=== PATIENT | female | born 2000 | race Two or more races ===

== ENCOUNTER 2025-05-09 16:20 | Emergency (ER) | payer MEDICAID, SELFPAY ==
--- NOTE | 2025-05-09 17:05 | XR_ITS ---
Examination: Complete OB ultrasound greater than 14 weeks Date and time of exam: May 09, 2025, 1733 hours INDICATIONS: No movement beginning 2 days ago Findings: Viable intrauterine single fetus with single amniotic sac presentation breech Cardiac motion 169 BPM Placenta posterior grade 1 Umbilical cord insertion seen Amniotic fluid index 10.7 cm spine posterior Cervix 2.4 cm Right ovary obscured by bowel gas Left ovary 2.7 cm arterial flow Composite estimated gestational age based on BPD, head circumference, abdominal circumference, femur length is 19 weeks 2 days Estimated weight 305 g. Survey of intracranial anatomy, spinal anatomy, abdominal anatomy, four-chamber heart performed with no abnormalities identified. Impression: Viable intrauterine gestation breech presentation
--- NOTE | 2025-05-09 17:06 | PD.EDRME ---
Rapid Medical Screening Exam RME Arrival date/time: 05/09/25 16:20 24-year-old female with no known medical history presents to the emergency room with a chief complaint of not being able to feel her baby move x 2 days. Patient is currently 19 weeks . I have greeted and performed a focused initial assessment of this patient. A comprehensive ED assessment and evaluation of the patient, analysis of all test results, and completion of the medical decision making process will be conducted by additional ED providers. Chief Complaint: OB/Uterine Contractions Time Seen by Provider: 05/09/25 16:39 Vital signs reviewed by provider: Yes
[2025-05-09 17:07] VITALS: BP 112/68; PULSE 97; RESP 16; TEMP 37.3; O2SAT 98
[2025-05-09 17:22] LABS: Collection Type, Urine Clean Catch; RBC,Urine 0 /hpf (0-3)
[2025-05-09 17:28] LABS: Basophils # (Auto) 0.1 Thou/mm3 (0.0-0.2); Basophils % (Auto) 0 % (0-2.5); Eosinophils # (Auto) 0.1 Thou/mm3 (0.0-0.5); Eosinophils % (Auto) 1 % (0-10); Hematocrit 34.6 % (36.0-46.0); Hemoglobin 12.2 g/dL (12.0-16.0); Immature Granulocytes Auto 0.18 Thou/mm3 (0.00-0.00); Lymphocytes # (Auto) 1.7 Thou/mm3 (1.0-4.8); Lymphocytes % (Auto) 13 % (10-50); Mean Corpuscular HGB Conc 35.3 g/dl (31.0-37.0); Mean Corpuscular Hemoglobin 31.9 pg (25.0-35.0); Mean Corpuscular Volume 90 fL (80-100); Monocytes # (Auto) 1.0 Thou/mm3 (0.0-0.8); Monocytes % (Auto) 8 % (0-12); Neutrophils # (Auto) 10.6 Thou/mm3 (1.8-7.7); Neutrophils % (Auto) 78 % (37-80); Nucleated Red Blood Cell # 0.00 Thou/mm3 (0.00-0.00); Nucleated Red Blood Cell % 0 /100 WBC (0); Platelet Count 213 Thou/mm3 (140-440); RDW Standard Deviation 41.8 fL (36.4-46.3); Red Blood Count 3.83 Miln/mm3 (4.00-5.20); White Blood Count 13.7 Thou/mm3 (3.6-11.0)
[2025-05-09 17:58] LABS: Bacteria,Urine 1+; Bilirubin,Urine Negative (Negative); Blood,Urine Negative (Negative); Clarity,Urine Clear (Clear/Hazy); Color,Urine Colorless (Lt Yel-Yel); Glucose, Urine Negative (Negative); Ketones,Urine Negative (Negative); Leukocyte Esterase,Urine Negative (Negative); Nitrite,Urine Negative (Negative); PH,Urine 7.0 (5.0-7.0); Protein,Urine Negative (Neg - Trace); Specific Gravity,Urine 1.006 (1.001-1.035); Squamous Epithelial Cell,Urine 2 /hpf (0-5); Urobilinogen,Urine Negative mg/dL (0.0-1.0); WBC,Urine 1 /hpf (0-5)
[2025-05-09 18:04] LABS: Alanine Aminotransferase 10 U/L (10-49); Albumin, Serum 4.1 gm/dL (3.5-5.0); Albumin/Globulin Ratio 1.5 (1.2-2.2); Alkaline Phosphatase 72 U/L (46-116); Anion Gap 10 (7-16); Aspartate Amino Transferase 17 U/L (0-34); BUN/Creatinine Ratio 8 Ratio (12-20); Bilirubin,Total 0.3 mg/dL (0.3-1.2); Blood Urea Nitrogen < 5 mg/dL (9-23); Calcium 9.4 mg/dL (8.3-10.6); Calcium (Corrected) 9.4 mg/dL (8.5-10.1); Carbon Dioxide 22.0 mMol/L (20.0-31.0); Chloride 107 mMol/L (98-107); Creatinine (Component) 0.6 mg/dL (0.6-1.3); Estimated Creatinine Clearance 127.9 mL/min (>60); Globulin 2.7 gm/dL (2.3-3.5); Glucose 79 mg/dL (74-106); Osmolality,Calculated 273 (275-295); Potassium 3.8 mMol/L (3.4-5.1); Sodium 139 mMol/L (136-145); Total Protein 6.8 gm/dL (5.7-8.2); eGFR > 60 See Note
[2025-05-09 18:27] LABS: Beta HCG,Quantitative 58564 mIU/mL (<5.0)
[2025-05-09 19:40] VITALS: BP 110/72; PULSE 93; RESP 15; TEMP 37; O2SAT 100
--- NOTE | 2025-05-09 20:22 | PD.EDPREG ---
ED OB Contraction Preg RMI/HPI General Chief complaint: OB/Uterine Contractions Stated complaint: NO MOVEMENT FELT SINCE SAT NIGHT, PREG 19WKS Time Seen by Provider: 05/09/25 16:39 Arrival date/time: 05/09/25 16:20 Limitations: no limitations RME / HPI RME / HPI Narrative: 05/09/25 16:20 24-year-old female with no known medical history presents to the emergency room with a chief complaint of not being able to feel her baby move x 2 days. Patient is currently 19 weeks . Patient denies any abdominal pain, nausea, or vomiting. She has no fevers or chills. She has no back or flank pain. She denies any vaginal discharge or dysuria. Has no urinary frequency. She is A0. She has no chronic medical conditions. She has no other acute complaints or concerns. Related Data Home Medications ?Medication ?Instructions ?Recorded ?Confirmed No Known Home Medications 05/29/21 05/29/21 Allergies Allergy/AdvReac Type Severity Reaction Status Date / Time No Known Allergies Allergy Verified 05/09/25 16:24 Review of Systems Review of Systems Systems Reviewed: All systems reviewed, normal except as documented ED Exam General Limitations: Present no limitations General appearance: Present alert and in no apparent distress Head Head exam: Present atraumatic Eye Eye exam: Present normal appearance, PERRL and EOMI ENT ENT exam: Present normal exam, normal oropharynx and mucous membranes moist Neck Neck exam: Present normal inspection, full ROM and trachea midline Chest Chest inspection: Present normal inspection and symmetric chest wall rise Respiratory Respiratory exam: Present normal lung sounds bilaterally Cardiovascular Cardiovascular exam: Present regular rate, normal rhythm and normal heart sounds Abdominal Exam Abdominal exam: Present soft and normal bowel sounds Extremities Exam Extremities exam: Present normal inspection and full ROM Back Exam Back exam: Present normal inspection and full ROM Neurological Exam Neurological exam: Present alert and oriented X3 Psychiatric Psychiatric exam: Present normal affect and normal mood Skin Skin exam: Present warm, dry, intact and normal color Course Quality Measures none Orders Category Date Time Status US OB >= 14 weeks Fetus Stat Exams 05/09/25 17:05 Completed ABO/RH Type Stat Lab 05/09/25 17:13 Completed Beta HCG,Quantitative Stat Lab 05/09/25 17:13 Completed CBC Stat Lab 05/09/25 17:13 Completed CMP [Comprehensive Metabolic Panel] Stat Lab 05/09/25 17:13 Completed UA [Urinalysis] Stat Lab 05/09/25 17:00 Completed Vital Signs Vital signs: Vital Signs Temperature 99.1 F 05/09/25 17:07 Pulse Rate 97 05/09/25 17:07 Respiratory Rate 16 05/09/25 17:07 Blood Pressure 112/68 05/09/25 17:07 Pulse Oximetry (%) 98 05/09/25 17:07 Oxygen Delivery Method Room Air 05/09/25 17:07 OB/Uterine Contractions MDM Narrative MDM Narrative:: 05/09/25 16:20 24-year-old female with no known medical history presents to the emergency room with a chief complaint of not being able to feel her baby move x 2 days. Patient is currently 19 weeks . Patient denies any abdominal pain, nausea, or vomiting. She has no fevers or chills. She has no back or flank pain. She denies any vaginal discharge or dysuria. Has no urinary frequency. She is A0. She has no chronic medical conditions. She has no other acute complaints or concerns. On exam patient is nontoxic-appearing and in no visible signs distress. Vital signs are stable. She has a mild leukocytosis of 13.7. She has no metabolic derangement. Urinalysis unremarkable. Ultrasound reveals heart rate. There is a live intrauterine . Discussed results with the patient. She will follow-up with her primary doctor and ITALIAN TEACHER. Return as needed for any worsening or emergent changes. Patient data External records reviewed:: None Clinical information provided by:: patient Social determinants that could affect healthcare access:: none Patient has the following chronic illnesses:: n/a How is presenting disease/condition affected by chronic disease/condition?: no chronic disease Evaluation data The following diagnostics were reviewed and interpreted by me:: lab results (CBC reveals mild leukocytosis otherwise unremarkable. There is no metabolic derangement. UA is unremarkable) and radiology exam(s) (Ultrasound reveals IUP with active heart rate.) Lab and/or radiology exams considered but not ordered:: n/a Interpretation Summary: n/a Medications / Prescriptions Medications or Prescriptions considered but not ordered:: n/a Medication administrations:: n/a Consultations Consultation(s) initiated? (list below): No Diagnosis OB Contractions Differential Diagnosis: premature labor and other (Miscarriage, threatened miscarriage) Most likely diagnosis given after review of the tests above:: Active Admission Indicated Admission indicated?: not indicated Explain why admission is indicated or not indicated:: Patient has no vaginal bleeding or discharge. Vital signs are stable. There is no evidence of septic shock Admission Request Was there a request for admission?: No Disposition Plan Disposition Plan: Discharge Discharge Attestation Discharge Attestation: The patient and all family members were given an opportunity to ask questions and understood the discharge instructions. Discharge instructions specifically effects, indications for sooner follow up or return to the emergency department, and the expected course of current diagnosis. Patient condition: Stable Discharge Plan Plan Patient Disposition: HOME (Self Care) Patient condition on transfer: Stable Prescriptions/Referrals Prescriptions/Med Rec: No Action No Known Home Medications Referrals: Victor Manuel Morrison MD [Primary Care Provider] - In 1 week Problem List Clinical Impression: Patient/Caregiver Discharge Instructions Education Materials: Preg 2nd Trimester Additional Instructions: - Maintain your hydration. Continue your current care including vitamins. - Follow-up with your primary doctor and ITALIAN TEACHER. - Return here as needed for any emergent changes or concerns. Print Language: Italian Stand Alone Forms: Gisela Award Info., Patient Portal Info Letter
[2025-05-09 20:32] VITALS: RESP 18
== END 2025-05-09 20:33 | disposition home or self-care (01) ==
PROVIDERS: Nurse Practitioner Family; Emergency Provider Emergency Medicine; PCP Family Medicine
DX: O99.112 Other diseases of the blood and blood-forming organs and certain disorders involving the immune mechanism complicating pregnancy, second trimester (principal); D72.829 Elevated white blood cell count, unspecified; Z3A.19 19 weeks gestation of pregnancy
CPT/HCPCS: 36415; 76805; 80053; 81001; 84702; 85025; 86900; 86901; 99283

== ENCOUNTER 2025-09-02 17:29 | Observation (INO) | payer MEDICAID, SELFPAY ==
[2025-09-02] VITALS (57 sets, daily range): BP systolic 110; BP diastolic 62; PULSE 73–106; RESP 18–98; TEMP 37.1–37.3; O2SAT 91–100; BMI 26.6
--- NOTE | 2025-09-02 18:09 | XR_ITS ---
Examination: Retroperitoneal ultrasound, complete Technique: Multiple high resolution grayscale images of the retroperitoneum obtained, including kidneys and bladder. Exam date and time: September 02, 2025, 2020 hours INDICATIONS: Back pain and flank pain today 35-week FINDINGS: Right kidney 12.6 cm renal cortex 2.7 cm Left kidney 12.2 cm renal cortex 3.0 cm No hydronephrosis or renal edema, no renal calculi Contracted urinary bladder IMPRESSION: No hydronephrosis or renal calculi
[2025-09-02] MEDS: RINGERS LACTATED 1000 ML 1,000 ML 999 ML IV (18:20)
[2025-09-02 18:44] LABS: Collection Type, Urine Clean Catch
[2025-09-02 19:00] LABS: Amorphous Crystals,Urine Present (Absent); Bacteria,Urine 1+; Bilirubin,Urine Negative (Negative); Blood,Urine Negative (Negative); Clarity,Urine Turbid (Clear/Hazy); Color,Urine Yellow (Lt Yel-Yel); Glucose, Urine Negative (Negative); Ketones,Urine 2+ (Negative); Leukocyte Esterase,Urine Positive (Negative); Nitrite,Urine Negative (Negative); PH,Urine 6.5 (5.0-7.0); Protein,Urine Trace (Neg - Trace); RBC,Urine 4 /hpf (0-3); Specific Gravity,Urine 1.024 (1.001-1.035); Squamous Epithelial Cell,Urine 8 /hpf (0-5); Urobilinogen,Urine Negative mg/dL (0.0-1.0); WBC,Urine 5 /hpf (0-5)
[2025-09-02] MEDS: RINGERS LACTATED 1000 ML 1,000 ML 125 ML IV (19:27)
[2025-09-02 19:29] LABS: Basophils # (Auto) 0.0 Thou/mm3 (0.0-0.2); Basophils % (Auto) 0 % (0-2.5); Eosinophils # (Auto) 0.1 Thou/mm3 (0.0-0.5); Eosinophils % (Auto) 1 % (0-10); Hematocrit 32.9 % (36.0-46.0); Hemoglobin 11.0 g/dL (12.0-16.0); Immature Granulocytes Auto 0.09 Thou/mm3 (0.00-0.00); Lymphocytes # (Auto) 1.6 Thou/mm3 (1.0-4.8); Lymphocytes % (Auto) 16 % (10-50); Mean Corpuscular HGB Conc 33.4 g/dl (31.0-37.0); Mean Corpuscular Hemoglobin 29.4 pg (25.0-35.0); Mean Corpuscular Volume 88 fL (80-100); Monocytes # (Auto) 1.0 Thou/mm3 (0.0-0.8); Monocytes % (Auto) 10 % (0-12); Neutrophils # (Auto) 7.1 Thou/mm3 (1.8-7.7); Neutrophils % (Auto) 72 % (37-80); Nucleated Red Blood Cell # 0.00 Thou/mm3 (0.00-0.00); Nucleated Red Blood Cell % 0 /100 WBC (0); Platelet Count 192 Thou/mm3 (140-440); RDW Standard Deviation 43.9 fL (36.4-46.3); Red Blood Count 3.74 Miln/mm3 (4.00-5.20); White Blood Count 9.9 Thou/mm3 (3.6-11.0)
[2025-09-02] MEDS: cefTRIAXone/D5w 1gm IV premix 1 GM/50 ML BAG IV (22:08)
== END 2025-09-02 22:51 | disposition home or self-care (01) ==
PROVIDERS: Admitting Provider Specialist; Visit Provider Specialist
DX: O26.893 Other specified pregnancy related conditions, third trimester (principal); Z3A.35 35 weeks gestation of pregnancy; M54.9 Dorsalgia, unspecified
CPT/HCPCS: 36415; 59025; 59899; 76770; 81001; 85025; 86850; 86900; 86901; 87086; G0378; J0696; J7120

== ENCOUNTER 2025-09-27 18:48 | Inpatient (IN) | payer MEDICAID, SELFPAY ==
--- NOTE | 2025-09-26 07:53 | ESHP_ITS ---
RE: MARQUIS CUMMINS : 2000 DATE OF ADMISSION: 09/27/2025 This is a 24-year-old 1, para 0 with due date of 10/02 with intrauterine at 39 weeks and 2 days on 09/27, who presents for induction of labor for gestational diabetes mellitus class A1 well controlled. Her most recent ultrasound on 09/19 showed overall growth at the 69th percentile with an abdominal circumference at the 95th percentile. She denies any leaking or bleeding. She reports normal movement. She has occasional contractions. PAST MEDICAL HISTORY: Gestational diabetes mellitus class A1, iron deficiency anemia, coronavirus infection. MEDICATIONS: 1. multivitamin 1 p.o. daily. 2. Ferrous sulfate 325 mg 1 p.o. daily. 3. Magnesium oxide 400 mg 1 tablet daily p.r.n. to prevent headaches. SOCIAL HISTORY: She denies any alcohol, drug use, or smoking. PAST MEDICAL HISTORY: Migraine headaches, gestational diabetes mellitus class A1. SOCIAL HISTORY: She denies any alcohol, drug use, or smoking. FAMILY HISTORY: Cousin with Down syndrome. PAST SURGICAL HISTORY: Denies. REVIEW OF SYSTEMS: She denies any chest pain, palpitations, cough, fever, flank pain, shortness of breath, or lower extremity pain. PHYSICAL EXAMINATION: VITAL SIGNS: Blood pressure 115/66, heart rate 88, respirations 18, temperature is 98.7, weight 162 pounds. HEENT: Oropharynx and sclerae are clear. LUNGS: Clear to auscultation bilaterally. HEART: Regular rate and rhythm. ABDOMEN: Gravid consistent with estimated weight 8.5 pounds. PELVIC EXAM: See RN notes. EXTREMITIES: Nontender. SKIN: No gross rashes or lesions. NEUROLOGIC: No focal deficit. ASSESSMENT: Intrauterine at 39 weeks and 2 days on 09/27, gestational diabetes mellitus class A1 well controlled. PLAN: Induction of labor, anticipate spontaneous vaginal delivery. Informed consent was obtained. The patient is made aware of the risk, complications, alternative, and benefits of the proposed procedure and she agrees. DT: 06:14:20 TT: 07:33:00 Ref: [id number] - TID: [id number] MTDD
[2025-09-27] VITALS (12 sets, daily range): BP systolic 100–117; BP diastolic 54–74; PULSE 82–102; RESP 16–17; TEMP 36.4–36.8; BMI 27.3
[2025-09-27] MEDS: RINGERS LACTATED 1000 ML 1,000 ML 100 ML IV (19:06)
[2025-09-27 19:35] LABS: Basophils # (Auto) 0.0 Thou/mm3 (0.0-0.2); Basophils % (Auto) 0 % (0-2.5); Eosinophils # (Auto) 0.0 Thou/mm3 (0.0-0.5); Eosinophils % (Auto) 0 % (0-10); Hematocrit 35.1 % (36.0-46.0); Hemoglobin 11.8 g/dL (12.0-16.0); Immature Granulocytes Auto 0.11 Thou/mm3 (0.00-0.00); Lymphocytes # (Auto) 1.5 Thou/mm3 (1.0-4.8); Lymphocytes % (Auto) 15 % (10-50); Mean Corpuscular HGB Conc 33.6 g/dl (31.0-37.0); Mean Corpuscular Hemoglobin 28.6 pg (25.0-35.0); Mean Corpuscular Volume 85 fL (80-100); Monocytes # (Auto) 0.7 Thou/mm3 (0.0-0.8); Monocytes % (Auto) 7 % (0-12); Neutrophils # (Auto) 7.4 Thou/mm3 (1.8-7.7); Neutrophils % (Auto) 76 % (37-80); Nucleated Red Blood Cell # 0.00 Thou/mm3 (0.00-0.00); Nucleated Red Blood Cell % 0 /100 WBC (0); Platelet Count 211 Thou/mm3 (140-440); RDW Standard Deviation 43.7 fL (36.4-46.3); Red Blood Count 4.12 Miln/mm3 (4.00-5.20); White Blood Count 9.8 Thou/mm3 (3.6-11.0)
--- NOTE | 2025-09-27 19:44 | XR_ITS ---
Examination: Complete OB ultrasound greater than 14 weeks Date and time of exam: September 27, 2025, 2030 hours INDICATIONS: History gestational diabetes, induction to 05/02/2025, unknown presentation Findings: Viable intrauterine single fetus with single amniotic sac presentation cephalic Cardiac motion 158 bpm Placenta posterior grade 3 Medical cord insertion 3 vessel seen Amniotic fluid index 9.6 cm spine maternal left Cervix 3.1 cm Ovaries obscured by bowel gas. Composite estimated gestational age based on BPD, head circumference, abdominal circumference, femur length is 39 weeks 2 days Estimated weight 3755 g. Survey of intracranial anatomy, spinal anatomy, abdominal anatomy, four-chamber heart performed with no abnormalities identified. Impression: Viable intrauterine gestation cephalic presentation.
[2025-09-27 21:29] LABS: Syphilis Nonreactive (Nonreactive)
[2025-09-28] VITALS (38 sets, daily range): BP systolic 93–140; BP diastolic 52–97; PULSE 77–113; RESP 14–25; TEMP 2.6–37.4; O2SAT 97–99
--- NOTE | 2025-09-28 07:33 | PD.LDPN ---
Documentation for date of: 09/28/25 OB Labor Progress Note Pain Control Comments: Denies any pain Pelvic Exam Dilation (cm): 1 Effacement (%): Thick station: -3 Amniotic membrane status: Intact Contractions Monitor mode: External Contraction frequency: 6-8 Contraction pattern: Tetanic Contraction intensity: Moderate Status status: Category l Assessment and Plan Comments: Cervical ripening ongoing Induction for gestational diabetes mellitus class A1 well-controlled at 39 weeks Anticipate spontaneous vaginal delivery History of Present Illness HPI Patient denies any primary complaint
[2025-09-28] MEDS: RINGERS LACTATED 1000 ML 1,000 ML 100 ML IV (09:35)
[2025-09-28] MEDS: FAMOTIDINE INJ 10 MG/ML VIAL 2 ML 20 MG IV (19:14)
[2025-09-28] MEDS: CITRIC ACID/SODIUM CITR 15 ML UDC (BICITRA) 30 ML PO (19:14)
[2025-09-28] MEDS: ceFAZolin/D5W 2 GM IV 2 GM/100 ML BAG IV (19:15)
[2025-09-28] MEDS: METOCLOPRAMIDE INJ 5 MG/ML VIAL 2 ML 10 MG IVP (19:24)
--- NOTE | 2025-09-28 19:34 | ESPR_ITS ---
Documentation for date of: 09/28/25 OB Labor Progress Note Pelvic Exam Dilation (cm): 1.5 Effacement (%): 30 station: -3 Amniotic membrane status: Intact Contractions Monitor mode: External Contraction frequency: 3-4 Contraction intensity: Mild Status status: Category ll Comments: Moderate variability persistent tachycardia in 180s to 190s not responding to intrauterine resuscitative measures CNM Management Details of MD consultation: Emergent delivery Informed consent was obtained the patient was made aware of the risk complication alternative benefits of the proposed procedure and she agrees. History of Present Illness HPI Notified by RN at 18:43 of tachycardia without explaination. No maternal fever. Maternal heart rate wnl. BP wnl. No vaginal bleeding. Cx 1-2 cm/30/- 3/I/vtx. Fluid bolus and change in position did not resolve the tachycardia which has been on going for over 1 hour. I reviewed the tracing remotely and at 18:53 ordered an Emergent C/S. Carol Masterson RN indicated that the cleaning people did not clean the OR after the last C/S which finished at 18:00. And they would need to be called before we could proceed with our Emergent C/S. I told her to have the cleaning people clean the OR stat.
--- NOTE | 2025-09-28 19:45 | ESDS_ITS ---
DS: Providers Provider Date of admission: 09/27/25 18:48 Primary care physician: Fortunato Vanegas MD Admitting Provider: Fortunato Vanegas MD Attending Provider on Admission: Fortunato Vanegas MD Attending Provider on DC: Fortunato Vanegas MD Discharging Provider: Fortunato Vanegas MD DS: Diagnosis Problem List Completed Was Problem List Reviewed/Reconciled?: Yes Summary/Hosp Course Brief History: Notified by RN at 18:43 of persistent tachycardia without explaination. No maternal fever. Maternal heart rate wnl. BP wnl. No vaginal bleeding. Cx 1- 2 cm/30/-3/I/vtx. Ctx 3-5 minutes. No uterine tachysystole. Fluid bolus and change in position did not resolve the tachycardia which has been on going for over 1 hour. I reviewed the tracing remotely and at 18:53 ordered an Emergent C/S. Carol Masterson RN indicated that the cleaning people did not clean the OR after the last C/S which finished at 18:00. And they would need to come clean the OR before we could proceed with our Emergent C/S. I told her to have the cleaning people clean the OR stat. Peripartum Data Delivery Method: Low Transverse Procedures: Procedures Operation Date: 09/28/25 20:15 <No data on this case meets the specified criteria> Time Spent with Patient Time attestation: Total time spent providing and/or coordinating discharge services: Exam Vital Signs Temp Pulse Resp BP O2 Del Method 98.4 F 113 H 17 129/80 Room Air 09/28/25 19:10 09/28/25 19:18 09/28/25 19:10 09/28/25 19:18 09/28/25 03:39 Discharge Plan Plan Patient Disposition: HOME (Self Care) Patient condition on transfer: Stable Prescriptions/Referrals Prescriptions/Med Rec: New hydrocodone-acetaminophen 5-325 mg tablet 1 tab PO Q6H MDD 4 PRN (Reason: pain) Qty: 20 0RF ibuprofen 600 mg tablet 600 mg PO Q6H PRN (Reason: pain) Qty: 30 0RF Continued PNV no.95-ferrous fumarate-FA [] 28 mg iron- 800 mcg tablet 1 tab PO DAILY Patient Comments: TAKE 1 TABLET BY MOUTH EVERY DAY No Action ferrous sulfate 325 mg (65 mg iron) tablet Patient Comments: TAKE 1 TABLET BY MOUTH EVERY DAY Referrals: Fortunato Vanegas MD [Primary Care Provider, MOBILE HOME TECHNICIAN] Patient/Caregiver Discharge Instructions Discharge Activity: activity as tolerated Other Discharge Activity Instructions:: Follow up office 2 weeks. Education Materials: C Section Dc Print Language: Senegalese Stand Alone Forms: Gisela Award Info., Patient Portal Info Letter Planned Discharge Date 09/30/25
--- NOTE | 2025-09-28 19:46 | ESOP_ITS ---
Operative Note - DRIVER UTILITY WORKER Procedure Date of procedure: 09/28/25 Procedure Performed: Primary low-transverse section via Pfannenstiel skin incision Indication: Intrauterine at 39 weeks and 3 days Gestational diabetes mellitus class A1 well-controlled Induction of labor Category 2 tracing remote from delivery with persistent unresolved tachycardia Pre-Op diagnosis: Intrauterine at 39 weeks and 3 days Gestational diabetes mellitus class A1 well-controlled Induction of labor Category 2 tracing remote from delivery with persistent unresolved tachycardia Post-Op diagnosis: Intrauterine at 39 weeks and 3 days Gestational diabetes mellitus class A1 well-controlled Induction of labor Category 2 tracing remote from delivery with persistent unresolved tachycardia Endometriosis Anesthesia type: Spinal Procedure description: After proper informed consent was obtained and the patient was made aware of the risks, complications, alternatives and benefits of the proposed procedure she was taken to the operating room where she underwent induction of spinal anesthesia. She was prepped and draped in the usual sterile fashion. A timeout was performed.? A Pfannenstiel skin incision was made with the scalpel and carried through to the underlying layer of fascia with the Bovie. The fascia was nicked in the midline incision and the incision was extended bilaterally with the Bovie. The inferior aspect of the fascial incision was grasped with Gurjit clamps elevated and the underlying rectus muscle dissected off with the Bovie. The superior aspect the fascial incision was grasped with Gurjit clamps elevated and the underlying rectus muscle dissected off with the Bovie. The rectus muscles were in the midline. The peritoneum was grasped between 2 Contreras clamps and entered sharply with the Metzenbaum scissors. The peritoneum was extended superiorly and inferiorly with good visualization of the bladder. The vesicouterine peritoneum was incised transversely and the bladder flap created digitally. A [place] blade was inserted. A low transverse incision was made in the uterus with a scapel and the incision was extended digitally. The infant's head delivered and the mouth and nose were suctioned with the bulb suction. The shoulder and body delivered atraumatically. The cord was clamped after 30 second delayed cord clamping and the cord was cut.? The female was handed off to the waiting Pediatric staff, cord blood was collected for lab testing. The placenta was removed complete and intact. The uterus was exteriorized and cleared of all clots and debris. The uterine incision was closed with #1-0 chromic catgut suture in a running interlocking fashion. A second layer of the same suture was used to imbricate the first layer and obtain excellent hemostasis. The vesicouterine peritoneum was closed with 2-0 chromic catgut suture in a running fashion. The firm uterus was returned to the abdomen. The gutters were cleared of all clots and debris. The peritoneum was closed with 0 chromic catgut suture in running fashion. The rectus muscle was closed with 0 chromic catgut suture. The fascia was closed with 0 Vicryl beginning at each angle and ending in the center in a running fashion. The subcutaneous tissue was irrigated with warmed normal saline solution and found to be hemostatic. The subcutaneous tissue was closed with 2-0 chromic catgut suture in a running fashion. The skin was closed with 4-0 Monocryl. A Dermabond Prineo dressing was applied and a sterile pressure dressing was applied.? She tolerated the procedure well. Counts were correct. I discussed with the patient the nature of her condition, intraoperative findings and expectation for recovery all? questions answered. Specimen: other (placenta) Findings: Live female infant Apgars 8 and 9 Weight 8 lbs 14 oz. Clear amniotic fluid Cephalic Fallopian tubes grossly within normal limits Anterior and posterior serosal surface of uterus contained superficial endometriotic implants. Ovaries contained superficial endometriotic implants Uterosacral ligaments both contained superficial endometriotic implants Placenta removed complete and intact Complications: none Surgical staff GIFTY Shetty Dr Surgeon [facility]'s PORTFOLIO CONSULTANT Operation Date: 09/28/25 20:15 <No data on this case meets the specified criteria> Diagnosis Problem List Completed Was Problem List Reviewed/Reconciled?: Yes
--- NOTE | 2025-09-28 20:55 | OBDSUM_ITS ---
Data (Roberts) Data Hx Section: No : 1 Livin Abortions: Spontaneous & Theraputic: 0 Delivery Data (Roberts) Labor Data Initiation of labor: Induction Induction/Augmentation Agent: Cytotec-PO and Cervidil ROM date: 09/28/25 ROM time: 20:24 Amniotic membrane rupture type: Artificial Amniotic fluid description: Clear Delivery Data EDC: 10/02/25 EDC calculated by:: LMP/early US confirmation delivery date: 09/28/25 Soper delivery time: 20:25 Gestational age (weeks): 39 Gestational age (days): 3 Placenta delivery date: 09/28/25 Placenta delivery time: 20:26 Delivered by: [place] Delivery nurse: eric argueta rn. [place] nurse: jonny pantoja rn. Sales Engineering Manager at delivery: No Support person(s) at delivery: matthew Other staff at delivery: Karis Chung cath lab radiological technologist. Delivery Method Delivery method: Low Transverse Presentation: Vertex position: OP Anesthesia Type Anesthesia Type: Spinal Anesthesia type: Spinal Placenta Placenta delivery description: Manual Removal Placenta Disposition: Sent to Pathology Cord blood sent to lab: Yes cord blood collection: Cord Blood Type, Arterial Cord Blood Gas and Venous Cord Blood Gas Episiotomy Episiotomy description: None EBL Estimated blood loss (ml): 600 Umbilical Cord cord description: 3 Vessels Additional Procedures None Complications Complications: None Data (Roberts) Data Soper's gender: Female Identification band number: [id number] weight (gms): 8 lb 13.801 oz Weight (pounds): 8 lbs and 13.8 ozs 1 minute: 8 5 minutes: 9
[2025-09-28] MEDS: KETOROLAC INJ 30 MG/ML VIAL IVP (21:41)
[2025-09-28] MEDS: ONDANSETRON INJ 2 MG/ML INJ 2 ML 4 MG IVP (21:51)
[2025-09-29] MEDS: OXYTOCIN in NS 20 units 20 UNIT/1,000 ML BAG 125 UNIT IV ×2 (00:23→08:42)
[2025-09-29] MEDS: ACETAMINOPHEN IVPB 1,000 MG/100 ML VIAL 250 MG IV (00:31)
[2025-09-29 01:41] LABS: Basophils # (Auto) 0.1 Thou/mm3 (0.0-0.2); Basophils % (Auto) 0 % (0-2.5); Eosinophils # (Auto) 0.0 Thou/mm3 (0.0-0.5); Eosinophils % (Auto) 0 % (0-10); Hematocrit 37.3 % (36.0-46.0); Hemoglobin 12.2 g/dL (12.0-16.0); Immature Granulocytes Auto 0.09 Thou/mm3 (0.00-0.00); Lymphocytes # (Auto) 0.7 Thou/mm3 (1.0-4.8); Lymphocytes % (Auto) 5 % (10-50); Mean Corpuscular HGB Conc 32.7 g/dl (31.0-37.0); Mean Corpuscular Hemoglobin 27.8 pg (25.0-35.0); Mean Corpuscular Volume 85 fL (80-100); Monocytes # (Auto) 1.1 Thou/mm3 (0.0-0.8); Monocytes % (Auto) 7 % (0-12); Neutrophils # (Auto) 13.7 Thou/mm3 (1.8-7.7); Neutrophils % (Auto) 88 % (37-80); Nucleated Red Blood Cell # 0.00 Thou/mm3 (0.00-0.00); Nucleated Red Blood Cell % 0 /100 WBC (0); Platelet Count 174 Thou/mm3 (140-440); RDW Standard Deviation 44.3 fL (36.4-46.3); Red Blood Count 4.39 Miln/mm3 (4.00-5.20); White Blood Count 15.7 Thou/mm3 (3.6-11.0)
[2025-09-29 03:31] VITALS: BP 124/73; PULSE 88; RESP 17; TEMP 36.9; O2SAT 98
--- NOTE | 2025-09-29 06:49 | ESPR_ITS ---
RE: MARQUIS CUMMINS : 2000 DATE OF SERVICE: 09/29/2025 SUBJECTIVE: Postop day number 1. Patient denies any problem or complaints. She is voiding. She is ambulating. She is tolerating a regular diet. She is passing flatus. She denies any excessive vaginal bleeding. She denies any dizziness or lightheadedness. She denies any chest pain, palpitations, shortness of breath or lower extremity pain. OBJECTIVE: VITAL SIGNS: Blood pressure 124/73, heart rate 88, respirations 17, temperature is 98.4, pulse ox is 98% on room air. LUNGS: Clear to auscultation bilaterally. HEART: Regular rate and rhythm. ABDOMEN: Nondistended. Dressing dry and intact. EXTREMITIES: Nontender. LABORATORY DATA: Hemoglobin pre-delivery is 11.8, post-delivery is 12.2. ASSESSMENT: Post op day number 1 status post delivery. PLAN: Remove dressing. Discontinue IV. Encourage ambulation. support. Possible discharge home tomorrow. DT: 06:13:50 TT: 06:48:00 Ref: [id number] - TID: [id number]
[2025-09-29 08:03] VITALS: BP 111/71; PULSE 97; RESP 18; TEMP 36.8; O2SAT 97
[2025-09-29] MEDS: DOCUSATE SOD 100 MG CAPSULE PO (08:42)
[2025-09-29] MEDS: ACETAMINOPHEN 325 MG TABLET 650 MG PO (08:42)
[2025-09-29] MEDS: SIMETHICONE 80 MG CHEW PO (08:43)
[2025-09-29 11:55] VITALS: BP 105/68; PULSE 98; RESP 17; TEMP 36.8; O2SAT 97
[2025-09-29] MEDS: HYDROcodone/APAP 5/325 TABLET 2 TAB PO (14:32)
[2025-09-29 15:25] VITALS: BP 116/77; PULSE 94; RESP 17; TEMP 36.9; O2SAT 97
[2025-09-29 20:57] VITALS: BP 116/78; PULSE 97; RESP 19; TEMP 36.9; O2SAT 98
[2025-09-29] MEDS: IBUPROFEN TAB 400 MG TABLET 800 MG PO (21:07)
[2025-09-30 03:48] VITALS: BP 122/76; PULSE 86; RESP 17; TEMP 36.7; O2SAT 98
[2025-09-30] MEDS: ACETAMINOPHEN 325 MG TABLET 650 MG PO (03:53)
--- NOTE | 2025-09-30 05:40 | PC.NURSE ---
0528 Education given to pt and significant other on use of breast pump. Demonstration given and pt began pumping. Pt and significant other stated all understanding with no questions.
--- NOTE | 2025-09-30 06:09 | ESPR_ITS ---
RE: MARQUIS CUMMINS : 2000 DATE OF SERVICE: 09/30/2025 SUBJECTIVE: Postop day #2. Patient denies any problem or complaints. OBJECTIVE: VITAL SIGNS: Blood pressure is 122/76, heart rate 86, respirations 17, temperature is 98.0. Pulse ox is 98 % on room air. LUNGS: Clear to auscultation bilaterally. HEART: Regular rate and rhythm. ABDOMEN: Incision clean and intact. Fundus is firm. EXTREMITIES: Nontender. ASSESSMENT: Postop day #2 status post delivery. PLAN: Discharge home. Discharge instructions given. Follow up in the office in 2 weeks. DT: 05:46:53 TT: 06:08:00 Ref: [id number] - TID: [id number]
[2025-09-30 07:25] VITALS: BP 110/69; PULSE 65; RESP 20; TEMP 36.9; O2SAT 96
[2025-09-30] MEDS: HYDROcodone/APAP 5/325 TABLET 1 TAB PO (08:44)
[2025-09-30] MEDS: DOCUSATE SOD 100 MG CAPSULE PO (09:00)
[2025-09-30] MEDS: SIMETHICONE 80 MG CHEW PO (09:00)
[2025-09-30] MEDS: IBUPROFEN TAB 400 MG TABLET 800 MG PO (10:31)
== END 2025-09-30 14:00 | disposition home or self-care (01) | DRG 540 ==
LOC: S4SX 09-28 19:42 → S4NX 09-28 20:01
PROVIDERS: Admitting Provider Specialist; PCP Specialist; Visit Provider Specialist
PROC: (CPT 59514; principal; 2025-09-28 20:00)
DX: O24.420 Gestational diabetes mellitus in childbirth, diet controlled (principal); Z37.0 Single live birth; Z3A.39 39 weeks gestation of pregnancy; O76 Abnormality in fetal heart rate and rhythm complicating labor and delivery
CPT/HCPCS: 36415; 59409; 76805; 85025; 86780; 86850; 86900; 86901; 94762; A4217; A4314; A4649; J0131; J0689; J1885; J2210; J2274; J2371; J2405; J2590; J2765; J3490; J7120; S0191; A9270; J2270